=== PATIENT | female | born 1995 | race Caucasian/White ===

== ENCOUNTER 2017-06-23 11:53 | Outpatient (CLI) | payer OTHER ==
[2017-06-23 12:39] LABS: WHITE BLOOD COUNT 10.1 10^3/ul (4.8-10.8)
[2017-06-23 12:39] LABS: ADD MAN DIFF? NO; BASOPHILS % 0.2 % (0.0-2.0); EOSINOPHILS % 0.3 % (0.0-7.0); HEMATOCRIT 33.4 % (37.0-47.0); HEMOGLOBIN 11.3 g/dl (12.0-16.0); LYMPHOCYTES # 2.2 10^3/ul (0.8-2.9); LYMPHOCYTES % 21.9 % (15.0-51.0); MEAN CORPUSCULAR HEMOGLOBIN 28.4 pg (29.0-33.0); MEAN CORPUSCULAR HGB CONC 33.8 g/dl (32.0-37.0); MEAN CORPUSCULAR VOLUME 83.9 fl (82.0-101.0); MEAN PLATELET VOLUME 10.2 fl (7.4-10.4); MONOCYTE # 0.8 10^3/ul (0.3-0.9); MONOCYTES % 7.9 % (0.0-11.0); NEUTROPHIL # 6.9 10^3/ul (1.6-7.5); NEUTROPHILS % 68.9 % (39.0-77.0); PLATELET COUNT 281 10^3/UL (140-415); RED BLOOD COUNT 3.98 10^6/ul (4.20-5.40); RED CELL DISTRIBUTION WIDTH 18.2 % (11.5-14.5)
[2017-06-23 12:50] LABS: ALANINE AMINOTRANSFERASE 27 IU/L (13-69); ALBUMIN 3.7 g/dl (3.3-4.9); ALBUMIN/GLOBULIN RATIO 1.02; ALKALINE PHOSPHATASE 176 IU/L (42-121); ANION GAP 15 (8-16); ASPARTATE AMINO TRANSFERASE 18 IU/L (15-46); BILIRUBIN,INDIRECT 0.3 mg/dl (0-1.1); BILIRUBIN,TOTAL 0.3 mg/dl (0.2-1.3); BLOOD UREA NITROGEN 6 mg/dl (7-20); CALCIUM 9.9 mg/dl (8.4-10.2); CARBON DIOXIDE 18 mmol/L (21-31); CHLORIDE 106 mmol/L (97-110); CREATININE 0.55 mg/dl (0.44-1.00); GLUCOSE 90 mg/dl (70-220); SODIUM 135 mmol/L (135-144); TOTAL PROTEIN 7.3 g/dl (6.1-8.1); URIC ACID 3.3 mg/dl (3.1-7.9)
[2017-06-23 13:03] LABS: INR 0.82; PROTIME 11.4 Sec (11.9-14.9); PT RATIO 0.9
[2017-06-23 13:04] LABS: PARTIAL THROMBOPLASTIN TIME 25.2 Sec (25.0-35.0)
[2017-06-23 13:12] LABS: ADD UMIC YES; UR AMORPHOUS CRYSTAL FEW /HPF (NONE SEEN); UR ASCORBIC ACID NEGATIVE (NEGATIVE); UR BACTERIA MODERATE /HPF (NONE SEEN); UR BILIRUBIN (Dip) NEGATIVE (NEGATIVE); UR BLOOD (Dip) NEGATIVE (NEGATIVE); UR CLARITY CLOUDY (CLEAR); UR COLOR YELLOW (YELLOW); UR GLUCOSE (Dip) NEGATIVE (NEGATIVE); UR KETONES (Dip) NEGATIVE (NEGATIVE); UR LEUKOCYTE ESTERASE (Dip) 2+ Leu/ul (NEGATIVE); UR NITRITE (Dip) NEGATIVE (NEGATIVE); UR RBC 1 /HPF (0-5); UR SPECIFIC GRAVITY (Dip) 1.006 (1.003-1.030); UR SQUAMOUS EPITHELIAL CELL FEW /HPF (FEW); UR TOTAL PROTEIN (Dip) NEGATIVE (NEGATIVE); UR UROBILINOGEN (Dip) NEGATIVE (NEGATIVE); UR WBC 7 /HPF (0-5)
== END 2017-06-23 14:25 | disposition home or self-care (01) ==
LOC: OBT 11:53 → L-D 11:53 → OBT 14:25
DX: O26.893 Other specified pregnancy related conditions, third trimester (principal); R03.0 Elevated blood-pressure reading, without diagnosis of hypertension; Z3A.35 35 weeks gestation of pregnancy
CPT/HCPCS: 36415; 76815; 76818; 80053; 81001; 84560; 85025; 85384; 85610; 85730; 87086

== ENCOUNTER 2017-07-01 14:38 | Observation (INO) | payer OTHER ==
[2017-07-01 15:41] LABS: ADD MAN DIFF? NO
[2017-07-01] MEDS ORDERED: METHYLERGONOVINE 0.2 MG INJ IM (16:00)
[2017-07-01] MEDS ORDERED: CARBOPROST 250 MCG INJ IM (16:00)
[2017-07-01] MEDS ORDERED: LIDOCAINE 1% (MPF) 30 ML INJ INJ (16:00)
[2017-07-01] MEDS ORDERED: IBUPROFEN 600 MG TAB PO (16:00)
[2017-07-01] MEDS ORDERED: OXYTOCIN 30 UNITS/LR 500 ML IV ×3 (16:00)
[2017-07-01] MEDS ORDERED: MISOPROSTOL 200 MCG TAB PR (16:00)
[2017-07-01 16:36] LABS: ADD UMIC NO; UR ASCORBIC ACID 20 mg/dL (NEGATIVE); UR BACTERIA FEW /HPF (NONE SEEN); UR BILIRUBIN (Dip) NEGATIVE (NEGATIVE); UR BLOOD (Dip) NEGATIVE (NEGATIVE); UR CLARITY SLIGHTLY CLOUDY (CLEAR); UR COLOR YELLOW (YELLOW); UR GLUCOSE (Dip) NEGATIVE (NEGATIVE); UR KETONES (Dip) TRACE mg/dL (NEGATIVE); UR LEUKOCYTE ESTERASE (Dip) NEGATIVE Leu/ul (NEGATIVE); UR NITRITE (Dip) NEGATIVE (NEGATIVE); UR RBC 0 /HPF (0-5); UR SPECIFIC GRAVITY (Dip) 1.008 (1.003-1.030); UR SQUAMOUS EPITHELIAL CELL FEW /HPF (FEW); UR TOTAL PROTEIN (Dip) NEGATIVE (NEGATIVE); UR UROBILINOGEN (Dip) NEGATIVE (NEGATIVE); UR WBC 1 /HPF (0-5)
[2017-07-01 16:44] LABS: INR 0.85; PROTIME 11.7 Sec (11.9-14.9); PT RATIO 0.9
[2017-07-01 16:45] LABS: PARTIAL THROMBOPLASTIN TIME 25.6 Sec (25.0-35.0)
[2017-07-01 16:52] LABS: WHITE BLOOD COUNT 9.9 10^3/ul (4.8-10.8)
[2017-07-01 16:52] LABS: HEMOGLOBIN 11.9 g/dl (12.0-16.0); RED BLOOD COUNT 4.09 10^6/ul (4.20-5.40)
[2017-07-01 16:53] LABS: MEAN CORPUSCULAR HEMOGLOBIN 29.1 pg (29.0-33.0); MEAN CORPUSCULAR VOLUME 85.6 fl (82.0-101.0); MEAN PLATELET VOLUME 10.4 fl (7.4-10.4); PLATELET COUNT 284 10^3/UL (140-415)
[2017-07-01 16:54] LABS: BASOPHILS % 0.1 % (0.0-2.0); EOSINOPHILS % 0.1 % (0.0-7.0); LYMPHOCYTES # 1.8 10^3/ul (0.8-2.9); LYMPHOCYTES % 18.1 % (15.0-51.0); MONOCYTE # 0.8 10^3/ul (0.3-0.9); MONOCYTES % 7.9 % (0.0-11.0); NEUTROPHIL # 7.3 10^3/ul (1.6-7.5); NEUTROPHILS % 73.3 % (39.0-77.0)
[2017-07-01 16:55] LABS: ALANINE AMINOTRANSFERASE 23 IU/L (13-69); ALBUMIN 3.9 g/dl (3.3-4.9); ALBUMIN/GLOBULIN RATIO 1.14; ALKALINE PHOSPHATASE 188 IU/L (42-121); ANION GAP 19 (8-16); ASPARTATE AMINO TRANSFERASE 19 IU/L (15-46); BILIRUBIN,INDIRECT 0.5 mg/dl (0-1.1); BILIRUBIN,TOTAL 0.5 mg/dl (0.2-1.3); BLOOD UREA NITROGEN 7 mg/dl (7-20); CALCIUM 10.1 mg/dl (8.4-10.2); CARBON DIOXIDE 18 mmol/L (21-31); CHLORIDE 106 mmol/L (97-110); CREATININE 0.56 mg/dl (0.44-1.00); GLUCOSE 100 mg/dl (70-220); POTASSIUM 3.8 mmol/L (3.5-5.1); SODIUM 139 mmol/L (135-144); TOTAL PROTEIN 7.3 g/dl (6.1-8.1); URIC ACID 3.5 mg/dl (3.1-7.9)
[2017-07-01] MEDS: LACTATED RINGER'S 1,000 ML IV ×2 (17:19→22:22)
[2017-07-01 17:25] LABS: HEPATITIS B SURFACE ANTIGEN NEGATIVE (NEGATIVE)
[2017-07-01] MEDS: OXYTOCIN 30 UNITS/LR 500 ML IV (23:03)
[2017-07-01 23:25] LABS: RAPID PLASMA REAGIN NONREACTIVE (NR)
[2017-07-02] MEDS: LACTATED RINGER'S 1,000 ML IV (06:24)
[2017-07-02] MEDS: BUTORPHANOL 2 MG INJ IV (06:35)
== END 2017-07-02 11:35 | disposition home or self-care (01) ==
LOC: OBT 14:38 → L-D 14:39 → OBT 15:35 → L-D 15:35
DX: O26.893 Other specified pregnancy related conditions, third trimester (principal); Z3A.37 37 weeks gestation of pregnancy
CPT/HCPCS: 76815; 76818; 80053; 81001; 81003; 84560; 85025; 85384; 85610; 85730; 86592; 86900; 86901; 87340; 99217

== ENCOUNTER 2017-07-03 04:25 | Inpatient (IN) | payer OTHER ==
[2017-07-03] MEDS ORDERED: LACTATED RINGER'S 1,000 ML IV (04:52)
[2017-07-03] MEDS ORDERED: CARBOPROST 250 MCG INJ IM (05:00)
[2017-07-03] MEDS ORDERED: OXYTOCIN 30 UNITS/LR 500 ML IV (05:00)
[2017-07-03] MEDS ORDERED: MISOPROSTOL 200 MCG TAB PR (05:00)
[2017-07-03] MEDS ORDERED: METHYLERGONOVINE 0.2 MG INJ IM (05:00)
[2017-07-03] MEDS ORDERED: LIDOCAINE 1% (MPF) 30 ML INJ INJ (05:00)
[2017-07-03 05:37] LABS: ADD MAN DIFF? NO
[2017-07-03] MEDS: LACTATED RINGER'S 1,000 ML IV ×3 (05:50→11:32)
[2017-07-03 05:51] LABS: BASOPHILS % 0.1 % (0.0-2.0); HEMATOCRIT 36.5 % (37.0-47.0); HEMOGLOBIN 12.2 g/dl (12.0-16.0); LYMPHOCYTES # 1.5 10^3/ul (0.8-2.9); LYMPHOCYTES % 10.9 % (15.0-51.0); MEAN CORPUSCULAR HGB CONC 33.4 g/dl (32.0-37.0); MEAN CORPUSCULAR VOLUME 86.9 fl (82.0-101.0); MEAN PLATELET VOLUME 10.5 fl (7.4-10.4); MONOCYTE # 0.8 10^3/ul (0.3-0.9); MONOCYTES % 6.1 % (0.0-11.0); NEUTROPHIL # 11.3 10^3/ul (1.6-7.5); NEUTROPHILS % 82.2 % (39.0-77.0); PLATELET COUNT 300 10^3/UL (140-415); RED CELL DISTRIBUTION WIDTH 18.2 % (11.5-14.5)
[2017-07-03 05:51] LABS: WHITE BLOOD COUNT 13.7 10^3/ul (4.8-10.8)
[2017-07-03 06:00] LABS: INR 0.89; PROTIME 12.1 Sec (11.9-14.9); PT RATIO 0.9
[2017-07-03 06:01] LABS: PARTIAL THROMBOPLASTIN TIME 23.5 Sec (25.0-35.0)
[2017-07-03] MEDS ORDERED: FENTAnyl 2MCG/ML-ROPIV 0.2% 100 ML (06:14)
[2017-07-03 06:35] LABS: HEPATITIS B SURFACE ANTIGEN NEGATIVE (NEGATIVE)
[2017-07-03] MEDS ORDERED: AMPICILLIN 2 GM/NS (PMX) 100 ML (12:11)
[2017-07-03] MEDS: AMPICILLIN 2 GM/NS (PMX) 100 ML IVPB (12:31)
[2017-07-03] MEDS ORDERED: AMPICILLIN 1 GM/NS (PMX) 50 ML IVPB (13:00)
[2017-07-03] MEDS: OXYTOCIN 30 UNITS/LR 500 ML IV ×3 (15:51→17:14)
[2017-07-03] MEDS ORDERED: HYDROCODONE/APAP (5/325) TAB PO ×2 (17:30)
[2017-07-03] MEDS ORDERED: OXYCODONE/ASPIRIN (4.88/325) TAB PO ×2 (17:30)
[2017-07-03] MEDS ORDERED: ACETAMINOPHEN 325 MG TAB PO (17:30)
[2017-07-03] MEDS ORDERED: ONDANSETRON 4 MG INJ IV (17:30)
[2017-07-03] MEDS: IBUPROFEN 600 MG TAB PO (17:34)
[2017-07-03 21:47] LABS: RAPID PLASMA REAGIN NONREACTIVE (NR)
[2017-07-03] MEDS: SENNA/DOCUSATE NA (8.6MG/50MG) TAB PO (21:50)
[2017-07-04] MEDS: DIBUCAINE 1% 30 GM OINT PR (00:37)
[2017-07-04] MEDS: IBUPROFEN 600 MG TAB PO ×5 (00:37→23:41)
[2017-07-04] MEDS: WITCH HAZEL/GLYCERIN PAD PR (00:37)
[2017-07-04] MEDS: LANOLIN 7 GM TUBE TOP (00:38)
[2017-07-04] MEDS: BENZOCAINE 20% 56 ML SPRAY TOP (00:38)
[2017-07-04 08:37] LABS: ADD MAN DIFF? NO
[2017-07-04 08:40] LABS: WHITE BLOOD COUNT 12.2 10^3/ul (4.8-10.8)
[2017-07-04 08:40] LABS: BASOPHILS % 0.3 % (0.0-2.0); EOSINOPHILS % 0.3 % (0.0-7.0); HEMATOCRIT 29.8 % (37.0-47.0); HEMOGLOBIN 9.8 g/dl (12.0-16.0); LYMPHOCYTES # 2.4 10^3/ul (0.8-2.9); LYMPHOCYTES % 19.3 % (15.0-51.0); MEAN CORPUSCULAR HEMOGLOBIN 29.2 pg (29.0-33.0); MEAN CORPUSCULAR HGB CONC 32.9 g/dl (32.0-37.0); MEAN CORPUSCULAR VOLUME 88.7 fl (82.0-101.0); MEAN PLATELET VOLUME 10.4 fl (7.4-10.4); MONOCYTE # 1.4 10^3/ul (0.3-0.9); MONOCYTES % 11.8 % (0.0-11.0); NEUTROPHIL # 8.2 10^3/ul (1.6-7.5); NEUTROPHILS % 67.5 % (39.0-77.0); PLATELET COUNT 222 10^3/UL (140-415); RED BLOOD COUNT 3.36 10^6/ul (4.20-5.40); RED CELL DISTRIBUTION WIDTH 18.4 % (11.5-14.5)
[2017-07-04] MEDS: SENNA/DOCUSATE NA (8.6MG/50MG) TAB PO ×2 (10:06→21:34)
[2017-07-04 11:59] LABS: RHOGAM PROFILE 1 1
[2017-07-05] MEDS: IBUPROFEN 600 MG TAB PO ×3 (05:35→17:33)
[2017-07-05] MEDS: SENNA/DOCUSATE NA (8.6MG/50MG) TAB PO (10:52)
[2017-07-05] MEDS: MEASLES,MUMPS,RUBELLA VACCINE INJ SC* (10:53)
== END 2017-07-05 19:00 | disposition home or self-care (01) | DRG 775 ==
LOC: OBT 04:25 → L-D 04:25 → OBT 05:00 → L-D 05:00 → PP1 17:41
PROVIDERS: Obstetrics & Gynecology
PROC: 10E0XZZ Delivery of Products of Conception, External Approach (ICD-10-PCS; principal; 2017-07-03)
PROC: 0HQ9XZZ Repair Perineum Skin, External Approach (ICD-10-PCS; 2017-07-03)
DX: O99.214 Obesity complicating childbirth (principal); E66.9 Obesity, unspecified; Z68.34 Body mass index [BMI] 34.0-34.9, adult; O70.0 First degree perineal laceration during delivery; Z37.0 Single live birth; Z3A.38 38 weeks gestation of pregnancy
CPT/HCPCS: 62319; 85025; 85610; 85730; 86592; 86850; 86885; 86900; 86901; 87340

== ENCOUNTER 2018-09-11 15:51 | Inpatient (IN) | payer OTHER ==
[2018-09-11 17:24] LABS: ADD MAN DIFF? NO
[2018-09-11 17:27] LABS: WHITE BLOOD COUNT 8.4 10^3/ul (4.8-10.8)
[2018-09-11 17:27] LABS: BASOPHILS % 0.2 % (0.0-2.0); EOSINOPHILS % 0.5 % (0.0-7.0); HEMATOCRIT 33.6 % (37.0-47.0); LYMPHOCYTES # 2.1 10^3/ul (0.8-2.9); LYMPHOCYTES % 25.1 % (15.0-51.0); MEAN CORPUSCULAR HEMOGLOBIN 27.8 pg (29.0-33.0); MEAN CORPUSCULAR HGB CONC 32.7 g/dl (32.0-37.0); MEAN CORPUSCULAR VOLUME 85.1 fl (82.0-101.0); MEAN PLATELET VOLUME 9.8 fl (7.4-10.4); MONOCYTE # 0.9 10^3/ul (0.3-0.9); MONOCYTES % 10.5 % (0.0-11.0); NEUTROPHIL # 5.3 10^3/ul (1.6-7.5); NEUTROPHILS % 62.9 % (39.0-77.0); PLATELET COUNT 280 10^3/UL (140-415); RED BLOOD COUNT 3.95 10^6/ul (4.20-5.40); RED CELL DISTRIBUTION WIDTH 17.8 % (11.5-14.5)
[2018-09-11 17:45] LABS: INR 0.85; PROTIME 11.7 Sec (11.9-14.9); PT RATIO 0.9
[2018-09-11 17:46] LABS: PARTIAL THROMBOPLASTIN TIME 24.8 Sec (23.0-35.0)
[2018-09-11 17:47] LABS: ALANINE AMINOTRANSFERASE 10 IU/L (13-69); ALBUMIN 3.7 g/dl (3.3-4.9); ALBUMIN/GLOBULIN RATIO 1.27; ALKALINE PHOSPHATASE 181 IU/L (42-121); ANION GAP 11 (5-13); ASPARTATE AMINO TRANSFERASE 18 IU/L (15-46); BILIRUBIN,INDIRECT 0.4 mg/dl (0-1.1); BILIRUBIN,TOTAL 0.4 mg/dl (0.2-1.3); BLOOD UREA NITROGEN 9 mg/dl (7-20); CALCIUM 9.6 mg/dl (8.4-10.2); CARBON DIOXIDE 19 mmol/L (21-31); CHLORIDE 108 mmol/L (97-110); Estimated GFR > 60 mL/min (>60); GLUCOSE 83 mg/dl (70-220); SODIUM 138 mmol/L (135-144); TOTAL PROTEIN 6.6 g/dl (6.1-8.1); URIC ACID 3.6 mg/dl (3.1-7.9)
[2018-09-11 17:54] LABS: ADD UMIC YES; UR ASCORBIC ACID NEGATIVE (NEGATIVE); UR BACTERIA FEW /HPF (NONE SEEN); UR BILIRUBIN (Dip) NEGATIVE (NEGATIVE); UR BLOOD (Dip) NEGATIVE (NEGATIVE); UR CLARITY CLOUDY (CLEAR); UR COLOR YELLOW (YELLOW); UR GLUCOSE (Dip) NEGATIVE (NEGATIVE); UR KETONES (Dip) NEGATIVE (NEGATIVE); UR LEUKOCYTE ESTERASE (Dip) 3+ Leu/ul (NEGATIVE); UR MUCUS FEW /HPF (NONE SEEN); UR NITRITE (Dip) NEGATIVE (NEGATIVE); UR RBC 6 /HPF (0-5); UR SPECIFIC GRAVITY (Dip) 1.015 (1.003-1.030); UR SQUAMOUS EPITHELIAL CELL MANY /HPF (FEW); UR TOTAL PROTEIN (Dip) 1+ mg/dl (NEGATIVE); UR UROBILINOGEN (Dip) NEGATIVE (NEGATIVE); UR WBC 32 /HPF (0-5)
[2018-09-11] MEDS ORDERED: BUTORPHANOL 2 MG INJ IV (21:30)
[2018-09-11] MEDS ORDERED: BUTORPHANOL 1 MG INJ IV (21:30)
[2018-09-11] MEDS ORDERED: MISOPROSTOL 200 MCG TAB PR (21:30)
[2018-09-11] MEDS ORDERED: LIDOCAINE 1% (MPF) 30 ML INJ INJ (21:30)
[2018-09-11] MEDS ORDERED: METHYLERGONOVINE 0.2 MG INJ IM (21:30)
[2018-09-11] MEDS ORDERED: CARBOPROST 250 MCG INJ IM (21:30)
[2018-09-11] MEDS ORDERED: OXYTOCIN 30 UNITS/LR 500 ML IV (21:30)
[2018-09-11] MEDS ORDERED: IBUPROFEN 600 MG TAB PO (21:30)
[2018-09-11 22:11] LABS: HEPATITIS B SURFACE ANTIGEN NEGATIVE (NEGATIVE)
[2018-09-11] MEDS: LACTATED RINGER'S 1,000 ML IV ×2 (22:59→23:26)
[2018-09-11] MEDS ORDERED: NALOXONE (0.4 MG/ML) INJ IV (23:30)
[2018-09-11] MEDS ORDERED: DIPHENHYDRAMINE 50 MG INJ IV (23:30)
[2018-09-11] MEDS ORDERED: ONDANSETRON 4 MG INJ IV (23:30)
[2018-09-11] MEDS ORDERED: FENTAnyl 2MCG/ML-ROPIV 0.2% 100 ML (23:31)
[2018-09-12] MEDS: LACTATED RINGER'S 1,000 ML IV ×2 (04:25→12:29)
[2018-09-12] MEDS: FENTAnyl 2MCG/ML-ROPIV 0.2% 100 ML BAG EPI ×2 (08:33→17:44)
[2018-09-12] MEDS ORDERED: ONDANSETRON 4 MG INJ IV ×2 (09:00→19:30)
[2018-09-12] MEDS ORDERED: ROPIVACAINE 0.2% 100ML BAG EPI (09:00)
[2018-09-12] MEDS ORDERED: NALOXONE (0.4 MG/ML) INJ IV ×2 (09:00→19:30)
[2018-09-12] MEDS ORDERED: DIPHENHYDRAMINE 50 MG INJ IV ×2 (09:00→19:30)
[2018-09-12] MEDS: MINERAL OIL LIGHT 10 ML VIAL TOP (15:00)
[2018-09-12 15:02] LABS: RAPID PLASMA REAGIN NONREACTIVE (NR)
[2018-09-12] MEDS ORDERED: OXYTOCIN 30 UNITS/LR 500 ML IV ×2 (17:30→19:30)
[2018-09-12] MEDS ORDERED: CEFAZOLIN 2 GM/50 ML (PMX) 50 ML IVPB (17:37)
[2018-09-12] MEDS ORDERED: OXYTOCIN 10 UNIT INJ ×2 (18:27→18:36)
[2018-09-12] MEDS ORDERED: morphine SULFATE/PF (10 MG/10 ML) INJ (18:32)
[2018-09-12] MEDS ORDERED: PHENYLephrine (100 MCG/ML) 5ML SYG (18:46)
[2018-09-12] MEDS: OXYTOCIN 30 UNITS/LR 500 ML IV ×3 (19:09→19:53)
[2018-09-12] MEDS ORDERED: METHYLERGONOVINE 0.2 MG INJ IM (19:30)
[2018-09-12] MEDS ORDERED: morphine 2 MG INJ IV (19:30)
[2018-09-12] MEDS ORDERED: NACL 0.9% 3 ML SYG IV (19:30)
[2018-09-12] MEDS ORDERED: CARBOPROST 250 MCG INJ IM (19:30)
[2018-09-12] MEDS ORDERED: MISOPROSTOL 200 MCG TAB PR (19:30)
[2018-09-12] MEDS: KETOROLAC 30 MG INJ IV (19:41)
[2018-09-12] MEDS: CEFAZOLIN 2 GM/50 ML (PMX) 50 ML IVPB ×2 (19:53)
[2018-09-13] MEDS: OXYTOCIN 30 UNITS/LR 500 ML IV (00:04)
[2018-09-13] MEDS: CEFAZOLIN 2 GM/50 ML (PMX) 50 ML IVPB ×2 (04:10→11:37)
[2018-09-13] MEDS: KETOROLAC 30 MG INJ IV ×2 (05:33→11:42)
[2018-09-13 08:01] LABS: ADD MAN DIFF? NO
[2018-09-13 08:04] LABS: WHITE BLOOD COUNT 10.9 10^3/ul (4.8-10.8)
[2018-09-13 08:04] LABS: BASOPHILS % 0.2 % (0.0-2.0); EOSINOPHILS % 0.3 % (0.0-7.0); HEMATOCRIT 28.4 % (37.0-47.0); HEMOGLOBIN 9.3 g/dl (12.0-16.0); LYMPHOCYTES # 1.6 10^3/ul (0.8-2.9); LYMPHOCYTES % 14.6 % (15.0-51.0); MEAN CORPUSCULAR HEMOGLOBIN 28.2 pg (29.0-33.0); MEAN CORPUSCULAR HGB CONC 32.7 g/dl (32.0-37.0); MEAN CORPUSCULAR VOLUME 86.1 fl (82.0-101.0); MEAN PLATELET VOLUME 10.8 fl (7.4-10.4); MONOCYTE # 1.1 10^3/ul (0.3-0.9); MONOCYTES % 9.7 % (0.0-11.0); NEUTROPHIL # 8.2 10^3/ul (1.6-7.5); NEUTROPHILS % 74.7 % (39.0-77.0); PLATELET COUNT 226 10^3/UL (140-415); RED CELL DISTRIBUTION WIDTH 18.5 % (11.5-14.5)
[2018-09-13 15:00] LABS: RHOGAM PROFILE 1 1
[2018-09-13] MEDS: OXYCODONE/ACETAMINOPHEN (5/325) TAB PO (18:52)
[2018-09-14] MEDS: IBUPROFEN 600 MG TAB PO ×4 (00:28→18:03)
[2018-09-14] MEDS: OXYCODONE/ACETAMINOPHEN (5/325) TAB PO ×2 (03:05→20:21)
[2018-09-14] MEDS: LANOLIN HPA 1 PKT TOP (09:53)
[2018-09-14] MEDS: FERROUS SULFATE (EC) 325 MG TAB PO ×2 (09:53→20:20)
[2018-09-15] MEDS: IBUPROFEN 600 MG TAB PO ×3 (01:00→12:27)
[2018-09-15] MEDS: FERROUS SULFATE (EC) 325 MG TAB PO (09:14)
== END 2018-09-15 13:55 | disposition home or self-care (01) | DRG 788 ==
LOC: OBT 15:51 → L-D 09-12 17:56 → PP1 09-12 21:57 → OBT 21:00 → L-D 21:00
PROC: 10D00Z1 Extraction of Products of Conception, Low, Open Approach (ICD-10-PCS; principal; 2018-09-12)
DX: O13.4 Gestational [pregnancy-induced] hypertension without significant proteinuria, complicating childbirth (principal); O62.0 Primary inadequate contractions; O36.63X0 Maternal care for excessive fetal growth, third trimester, not applicable or unspecified; Z3A.39 39 weeks gestation of pregnancy; Z37.0 Single live birth
CPT/HCPCS: 36415; 62319; 76815; 76818; 80053; 81001; 84560; 85025; 85610; 85730; 86592; 86850; 86885; 86900; 86901; 87340; 99464